=== PATIENT | female | born 2000 | race Two or more races ===

== ENCOUNTER 2023-02-19 09:50 | Emergency (ER) | payer SELFPAY ==
[~2023-02-19] VITALS: Ht 177.8 cm; Wt 145.0 kg
[2023-02-19 10:10] VITALS: BP 152/83; PULSE 98; RESP 16; TEMP 98.4; O2SAT 98
[2023-02-19 10:47] LABS: ALANINE AMINOTRANSFERASE 9 IU/L (10-49); ALBUMIN 4.2 g/dL (3.2-4.8); ASPARTATE AMINOTRANSFERASE 11 IU/L (<34); BILIRUBIN TOTAL 0.6 mg/dL (0.1-1.0); CALCIUM 9.1 mg/dL (8.7-10.4); CARBON DIOXIDE 19 mEq/L (21-32); CHLORIDE 106 mEq/L (98-107); CREATININE 0.7 mg/dL (0.6-1.0); GLUCOSE 101 mg/dL (70-105); POTASSIUM 3.4 mEq/L (3.5-5.1); PROTEIN TOTAL 7.2 g/dL (6.0-8.3); SODIUM 141 mEq/L (136-145)
[2023-02-19 10:49] LABS: UREA NITROGEN BLOOD < 5 mg/dL (9-23)
[2023-02-19 10:56] LABS: BASOPHILS % 0.5 % (0.0-2.0); EOSINOPHILS % 0.1 % (0.0-5.0); HEMATOCRIT. 35.1 % (36.0-48.0); LYMPHOCYTES % 20.4 % (20.0-50.0); MEAN CORPUSCULAR HEMOGLOBIN 26.1 pg (28.0-32.0); MEAN CORPUSCULAR HGB CONC 31.3 g/dL (31.0-37.0); MEAN CORPUSCULAR VOLUME 83.3 fL (81.0-99.0); MEAN PLATELET VOLUME 9.2 fl (7.4-10.4); MONOCYTES % 5.8 % (2.0-8.0); NEUTROPHILS % 73.2 % (40.0-76.0); PLATELET 396 x1000/uL (130-400); RED BLOOD CELL COUNT 4.22 mill/uL (4.2-5.4); RED CELL DISTRIBUTION WIDTH 15.3 % (11.6-14.6); WHITE BLOOD COUNT 11.6 x1000/uL (4.5-11.0)
[2023-02-19 15:35] LABS: CLARITY URINE CLOUDY (CLEAR); COLOR URINE DARK YELLOW (YELLOW); GLUCOSE URINE NEGATIVE (NEGATIVE); KETONES URINE 2+ (NEGATIVE); LEUKOCYTE ESTERASE URINE 2+ (NEGATIVE); NITRITE URINE NEGATIVE (NEGATIVE); OCCULT BLOOD URINE 3+ (NEGATIVE); PH URINE 6.5 (4.5-8.0); PROTEIN URINE TRACE (NEGATIVE); SPECIFIC GRAVITY URINE 1.023 (1.005-1.030)
[2023-02-19] MEDS ORDERED: NITR-87 MT (15:54)
[2023-02-19] MEDS ORDERED: PYR200 MT (15:54)
[2023-02-19] MEDS ORDERED: NITROFURANTOIN 100MG M/M CAPSULE PO ONE (16:00)
[2023-02-19] MEDS ORDERED: PHENAZOPYRIDINE HCL 100MG TABLET PO ONE (16:00)
[2023-02-19 16:21] LABS: BACTERIA URINE 3+; RBC URINE 15-25 /hpf (0-2); SQUAMOUS EPITHELIAL CELL URINE 2+ /lpf (RARE/1+)
[2023-02-20 13:24] LABS: UCG SCREEN NEGATIVE
== END 2023-02-19 16:33 | disposition home or self-care (01) ==
LOC: ER 10:39
DX: N39.0 Urinary tract infection, site not specified (principal); J02.9 Acute pharyngitis, unspecified
CPT/HCPCS: 36415; 80053; 81003; 81025; 85025; 99283